=== PATIENT | female | born 1980 | race Caucasian/White ===

== ENCOUNTER 2016-12-17 15:27 | Inpatient (IN) | payer MEDICAID, MEDICARE ==
[2016-12-17] MEDS ORDERED: NS 0.9% 1000 ML* 2,000 ML IV ONE ×2 (15:41→17:50)
--- NOTE | 2016-12-17 16:01 | ED ---
GI/ HPI - HPI Summary HPI Summary: 36F presents with blood in stool. She has been having diarrhea since . She states she has started to notice gross blood in her stool today. She was seen by Dr Andujar and her h/h dropped by 4 points. She denies any dark tarry stool. She has been having low grade fevers. She denies any lightheadedness or weakness. She states she has been having LLQ pain. She has history of diarrhea that they believe is related to stress. She denies any excessive vaginal bleeding and she is not currently on her menses. She states her LMP was in October she believes. She does not know her family history because she was adopted. She admits to occasionally nausea and what she describes a choking feeling. She denies any flank pain, hematuria, frequency, or urgency. She does not know her family history due to being adopted. - History of Current Complaint Chief Complaint: EDGIBleed Time Seen by Provider: 12/17/16 15:39 Stated Complaint: DIARRHEA-SENT BY DR QUINTERO Pain Intensity: 6 - Allergy/Home Medications Allergies/Adverse Reactions: Allergies Allergy/AdvReac Type Severity Reaction Status Date / Time No Known Allergies Allergy Verified 12/17/16 16:37 Home Medications: Home Medications ALPRAZolam TAB* [Xanax TAB*] 0.25 mg PO DAILY PRN 12/17/16 [History Confirmed ] Bacitracin OINTMENT* 1 applic TOPICAL TID PRN 12/17/16 [History Confirmed ] Calcium Carbonate-Cholecalcife [Calcium 500+D 500-200 mg-Unit] 1 tab PO DAILY [History Confirmed 12/17/16] Carbamide Peroxide 6.5% OTIC* [DEBROX 6.5% Otic*] 5 drop BOTH EARS DAILY PRN 07/05 [History Confirmed 12/17/16] Cetirizine* [ZyrTEC 10 MG TAB*] 10 mg PO DAILY 12/17/16 [History Confirmed 12/17] Fluvoxamine Maleate [Fluvoxamine Maleate ER] 100 mg PO DAILY 12/17/16 [History Confirmed 12/17/16] Fluvoxamine Maleate [Fluvoxamine Maleate ER] 200 mg PO BEDTIME 12/17/16 [ History Confirmed 12/17/16] busPIRone TAB* [Buspar *] 45 mg PO BID 12/17/16 [History Confirmed 12/17/16] carBAMazepine ER TAB(*) [TEGretol Xr TAB(*)] 400 mg PO BEDTIME 12/17/16 [ History Confirmed 12/17/16] PMH/Surg Hx/FS Hx/Imm Hx Endocrine/Hematology History: Denies: Hx Diabetes Cardiovascular History: Denies: Hx Hypertension Neurological History: Reports: Hx Developmental Delay Infectious Disease History: Denies: Traveled Outside the [place] in Last 30 Days - Family History Known Family History: Positive: Unknown - adopted - Social History Alcohol Use: None Substance Use Type: Reports: None Smoking Status (MU): Never Smoked Tobacco Review of Systems Positive: Fever Negative: Chest Pain Negative: Shortness Of Breath Positive: Abdominal Pain, Diarrhea, Nausea Negative: flank pain All Other Systems Reviewed And Are Negative: Yes Physical Exam Triage Information Reviewed: Yes Vital Signs On Initial Exam: Initial Vitals Temp Pulse Resp BP Pulse Ox 101.2 F 136 16 112/76 99 12/17/16 15:30 12/17/16 15:30 12/17/16 15:30 12/17/16 15:30 12/17/16 15:30 Vital Signs Reviewed: Yes Appearance: Positive: Well-Appearing Skin: Positive: Warm, Dry Head/Face: Positive: Normal Head/Face Inspection Eyes: Positive: Normal, EOMI, ALEXIS, Conjunctiva Clear ENT: Positive: Normal ENT inspection, Pharynx normal, TMs normal Respiratory/Lung Sounds: Positive: Clear to Auscultation, Breath Sounds Present Cardiovascular: Positive: Normal, RRR Abdomen Description: Positive: Soft, Other: - tenderness in LLQ, no rebound, bright red blood on rectal exam with no external hemorrhoid seen Bowel Sounds: Positive: Present Diagnostics - Vital Signs Vital Signs Temp Pulse Resp BP Pulse Ox 12/17/16 15:30 101.2 F 136 16 112/76 99 - Laboratory Result Diagrams: 12/17/16 16:15 12/17/16 16:15 Lab Statement: Any lab studies that have been ordered have been reviewed, and results considered in the medical decision making process. - CT abd CT Interpretation: Positive (See Comments) - IMPRESSION: MUCOSAL THICKENING OF THE DISTAL COLON SUGGESTIVE OF COLITIS CT Interpretation Completed By: Radiologist GIGU Course/Dx - Course Course Of Treatment: 36F presents with blood in stool. She has been having diarrhea since . She states she has started to notice gross blood in her stool today. She was seen by Dr Andujar and her h/h dropped by 4 points. She denies any dark tarry stool. She has been having low grade fevers. She denies any lightheadness or weakness. She states she has been having LLQ pain. She has history of diarrhea that they believe is related to stress. She denies any excessive vaginal bleeding and she is not currently on her menses. On exam she is tender in LLQ. rectal exam shows bright red blood with no evidence of hemorrhoid seen. She has a fever on exam. labs wbc 11.7, h/ h decreased by 1 since this morning. discussed with dr Hinojosa who will admit. CT shows mucosal thickening suggestive of colitis - Diagnoses Differential Diagnoses - Female: Colitis, Diverticulitis, Gastroenteritis ( Bacterial), Ulcerative Colitis/Crohn's Disease Provider Diagnoses: Abdominal pain, Colitis, GI bleed Discharge - Discharge Plan Condition: Stable Disposition: ADMITTED TO [facility]
[2016-12-17 16:29] LABS: Hematocrit 29 % (35-47); Hemoglobin 9.3 g/dl (12.0-16.0); Mean Corpuscular HGB Conc 32 g/dl (31-36); Mean Corpuscular Hemoglobin 29 pg (27-31); Mean Corpuscular Volume 90 fL (80-97); Mean Platelet Volume 8 um3 (7.4-10.4); Red Blood Count 3.23 10^6/ul (4.0-5.4); Red Cell Distribution Width 15 % (10.5-15); White Blood Count 11.7 10^3/ul (3.5-10.8)
[2016-12-17 16:31] LABS: Add Diff/Slide Review? Slide Review Added; Comments Flag Yes
[2016-12-17 16:44] LABS: ALT 14 U/L (7-52); AST 12 U/L (13-39); Albumin 2.5 g/dL (3.2-5.2); Alkaline Phosphatase 54 U/L (34-104); Anion Gap 8 mmol/L (2-11); Blood Urea Nitrogen 9 mg/dL (6-24); CO2 Carbon Dioxide 26 mmol/L (22-32); Calcium 8.2 mg/dL (8.6-10.3); Chloride 99 mmol/L (101-111); EGFR African American 101.4 (>60); EGFR Non-African American 78.9 (>60); Globulin 5.1 g/dL (2-4); Glucose 118 mg/dL (70-100); Potassium 3.8 mmol/L (3.5-5.0); Sodium 133 mmol/L (133-145); Total Protein 7.6 g/dL (6.4-8.9)
[2016-12-17] MEDS ORDERED: Ciprofloxacin TAB* 500 MG PO ONE (16:57)
[2016-12-17] MEDS ORDERED: metroNIDAZOLE TAB* 250 MG PO ONE (16:57)
[2016-12-17] MEDS ORDERED: Iohexol 300* (CONTRAST) 10 ML SDV IV ONE (17:13)
[2016-12-17 17:43] LABS: Immature Granulocytes 16 % (0-9); Metamyelocytes % 1 % (0-2); Myelocytes % 1 % (0-1); Neutrophil % 70 % (38-83); RBC Morphology Normal (Normal)
[2016-12-17 17:44] LABS: Toxic Granulation 2+
[2016-12-17 17:46] LABS: C Reactive Protein 265.66 mg/L (< 5.00)
[2016-12-17] MEDS ORDERED: Ondansetron INJ* 2 MG/ML VIAL IV PRN (17:50)
[2016-12-17] MEDS ORDERED: Acetaminophen TAB* 325 MG PO PRN (17:50)
[2016-12-17] MEDS ORDERED: NS 0.9% 1000 ML* 1,000 ML IV SCH (18:00)
--- NOTE | 2016-12-17 18:22 | RAD ---
HISTORY: Cough, fever COMPARISONS: None VIEWS:1: Single frontal portable view of the chest at 6:19 PM FINDINGS: LINES AND TUBES: None. CARDIOMEDIASTINAL SILHOUETTE: The cardiomediastinal silhouette is normal for portable technique. PLEURA: The costophrenic angles are sharp. No pleural abnormalities are noted. LUNG PARENCHYMA: The lungs are clear. ABDOMEN: The upper abdomen is clear. There is no subphrenic gas. BONES AND SOFT TISSUES: No bone or soft tissue abnormalities are noted. IMPRESSION: NO ACTIVE CARDIOPULMONARY DISEASE.
[2016-12-17 18:24] LABS: Urine Bacteria 1+ (Absent); Urine Bilirubin Negative (Negative); Urine Glucose Negative (Negative); Urine Nitrite Negative (Negative)
--- NOTE | 2016-12-17 18:30 | RAD ---
CLINICAL HISTORY: Left lower quadrant pain, fever COMPARISON: None TECHNIQUE: Multiple contiguous axial CT scans were obtained of the abdomen and pelvis after the administration of intravenous contrast. Coronal and sagittal multiplanar reformations are submitted for review. Oral contrast was administered. Delayed images were obtained through the abdomen and pelvis. FINDINGS: LUNG BASES: The lung bases are clear. LIVER: The liver is normal in shape, size, contour, and attenuation. BILE DUCTS: There is no intrahepatic or extrahepatic biliary dilatation. GALLBLADDER: The gallbladder is not clearly visualized. PANCREAS: The pancreas is normal, without mass or ductal dilatation. SPLEEN: Normal in size and appearance. UPPER GI TRACT: Evaluation of the gastrointestinal tract is limited by incomplete gastric distention. The upper GI tract is unremarkable. SMALL BOWEL AND MESENTERY: The small bowel is normal in contour, course, and caliber. There is no obstruction or dilatation. COLON: There is mucosal thickening of the rectosigmoid colon. There is a tubular, vermiform, hollow viscus that is blind ending, and originates from the cecum, consistent with a normal appendix. There is no periappendiceal inflammatory change. This is best seen on axial images 46 through 53 ADRENALS: Normal bilaterally. KIDNEYS: The kidneys are normal in shape, size, contour, and axis. There is no hydronephrosis or nephrolithiasis. BLADDER: The bladder is collapsed and is not well evaluated PELVIC ORGANS: The uterus and adnexa are grossly normal for technique. AORTA: The aorta is normal. IVC: Unremarkable LYMPH NODES: There is no lymphadenopathy by size criteria. ABDOMINAL WALL: There is no evidence for abdominal wall hernia. BONES AND SOFT TISSUES: There is partial lumbarization of S1. Degenerative changes are noted at L5-S1 OTHER: None IMPRESSION: MUCOSAL THICKENING OF THE DISTAL COLON SUGGESTIVE OF COLITIS
[2016-12-17] MEDS: NS 0.9% 1000 ML* 1,000 ML IV SCH ×3 (20:56→23:14)
[2016-12-17 21:37] LABS: Urine Bacteria Absent (Absent); Urine Bilirubin Negative (Negative); Urine Glucose Negative (Negative); Urine Nitrite Negative (Negative)
[2016-12-17] MEDS: busPIRone TAB* 30 MG PO SCH (22:03)
[2016-12-17] MEDS: carBAMazepine ER TAB(*) 200 MG PO SCH (22:04)
[2016-12-17] MEDS: FLUVOXAMINE 100 MG PO SCH (23:18)
[2016-12-17 23:29] LABS: Hematocrit 23 % (35-47); Hemoglobin 7.5 g/dl (12.0-16.0)
[2016-12-18] MEDS ORDERED: NS 0.9% 1000 ML* 1,000 ML IV ONE
[2016-12-18] MEDS: metroNIDAZOLE IV 500 MG/100ML* 500 MG/100 ML BAG IVPB SCH ×3 (03:02→22:51)
[2016-12-18] MEDS: Ciprofloxacin 400MG IVPREMIX(* 400 MG/200 ML BAG IVPB SCH ×2 (04:57→17:49)
--- NOTE | 2016-12-18 06:43 | HP ---
CC: Dr. Saldana; Dr. Palma* HISTORY AND PHYSICAL: DATE OF ADMISSION: 12/17/16 PRIMARY CARE PROVIDER: Dr. Saldana ATTENDING PHYSICIAN WHILE IN THE HOSPITAL: Con Camarena MD* (report dictated by Bryan Diane NP). CHIEF COMPLAINT: 1. Diarrhea. 2. Low H and H. 3. Bright red blood per rectum. HISTORY OF PRESENT ILLNESS: Ms. Munguia is a 36-year-old female patient who presented to our hospital today complaining of having diarrhea since the , off and on throughout the month of November. However, the last day she believes she has been having some bloody diarrhea. It is hard to say whether or not it has been her menses or bloody diarrhea. The patient does have intellectual developmental delay and she is able to care for herself. She does not really know how many times she has been having bloody diarrhea, but they definitely noticed it today, the staff did and they were concerned. She saw Dr. Saldana, there were labs obtained today and it was noted that her H and H since October had dropped quite significantly and the patient was referred to the ER for further care and evaluation. The patient denies having any chest pain currently. She denies having any shortness of breath. She galileo admit to having some lower abdominal cramping and abdominal discomfort. She says that she is not having any chest pain and does not feel lightheaded or like she is going to faint or pass out. However, was concerned in the ER because it was noted when she came in she was febrile, she had a white count, she appeared to have an elevated CRP, and her lactic acid was up. There was concern for sepsis and the lower GI bleed, and the hospitalist's service was asked to evaluate for admission. PAST MEDICAL HISTORY: Significant for: 1. OCD. 2. Seizures. 3. Intellectual developmental delay. PAST SURGICAL HISTORY: She has had a colonoscopy about 2 and half years ago with Dr. Gonzales, refer to that report for details, but ultimately found polyps. FAMILY HISTORY: Unknown as she is adopted. SOCIAL HISTORY: She does not smoke, does not drink. She resides at the [facility]. ALLERGIES TO MEDICATIONS: No known drug allergies. HOME MEDICATIONS: According to [facility]'s list include: 1. Imodium 2 mg every 6 hours as needed. 2. Hydrocortisone 0.2% topically daily as needed. 3. Xanax 0.25 mg p.o. daily as needed prior to [facility] appointments. 4. Debrox 5 drops both ears daily as needed. 5. Tylenol 650 mg every 4 hours as needed. 6. Robitussin 5 mg p.o. every 4 hours. 7. Bacitracin 1 application topically t.i.d. as needed. 8. Fluvoxamine 200 mg at bedtime and she takes 100 mg in the morning. 9. Zyrtec 10 mg daily. 10. Carbamazepine 400 mg p.o. at bedtime. 11. BuSpar 45 mg p.o. b.i.d. 12. Calcium carbonate with vitamin D 1 tablet p.o. daily. 13. Vitamin C 500 mg p.o. daily. 14. Folic acid 1 tablet 1 mg p.o. daily. REVIEW OF SYSTEMS: There is a documented fever here. She denied having any double vision. There was weight change of about 20 pounds since beginning of November. No ear discharge. There was no rhinorrhea. No sore throat. No thyroid enlargement. She does admit to having cough that has been productive of white phlegm at times. There is no chest pain or shortness of breath. There was abdominal discomfort, again she describes as a lower quadrant, sharp pain. She denies having any nausea, vomiting. No dysuria. No frequency. There was no seizure. No loss of consciousness. No pruritus and no skin ulceration. Review of 14 systems completed, all others negative. PHYSICAL EXAMINATION GENERAL: At this time, Ms. Munguia is a 36-year-old female patient. She is sitting in the ER stretcher. She does not appear to be in acute distress. VITAL SIGNS: Blood pressure 123/78, pulse 110, respirations 20, O2 sat 99%, temperature of 100.7. HEENT: Head is atraumatic and normocephalic. Eyes: EOMs are intact. Sclerae are anicteric. Not pale. Throat: Oral mucosa appeared to be dry. No oropharyngeal erythema. NECK: Supple. HEART: Sounds S1 and S2. Regular rate and rhythm. She is tachycardic. LUNGS: Clear to auscultation bilaterally. No wheezes, rales, or rhonchi. ABDOMEN: Soft and flat. Bowel sounds are present in all 4 quadrants. Tenderness in the left lower quadrant. EXTREMITIES: Pulses are 2+ throughout. She is able to move all 4 extremities, 5/5 strength. NEUROLOGIC: The patient is awake, alert, she is oriented x3. No gross focal deficits. SKIN: Intact. LABORATORY DATA/DIAGNOSTIC STUDIES: Today, revealed WBC of 11.7, RBC 2.23, hemoglobin 9.3, hematocrit 29, platelet count of 511. INR 1.11. PTT at 27.0. Sodium 133, potassium 3.8, chloride 99, bicarbonate 26, BUN 9, creatinine 0.83. Glucose of 118. Lactic acid 2.0. Calcium 8.2, total bilirubin 0.2, AST 12, ALT 14, alkaline phos 54. Her CRP was 255, albumin of 2.5. Chest x-ray is pending in addition to the CT of the abdomen and pelvis pending. Old medical records reviewed. ASSESSMENT AND PLAN: Ms. Munguia is a 36-year-old female patient coming in to the ER today with complaints of lower abdominal cramping and bright red blood per rectum. She will be admitted under inpatient status for: 1. Sepsis. Again, this is probably from a GI source, concerned that may be she has diverticulitis. She does not appear to have a surgical abdomen at this time. She is soft, little bit tender in the lower abdomen, there is no guarding or rebound tenderness. My plan is to get a CT of the abdomen and pelvis, chest x-ray, blood cultures, urine culture. I did touch base with GI for the lower rectal bleeding. My plan will be to follow her H and Hs closely, hydrate her aggressively, I am going to give her 2 L of fluids wide open and Cipro and Flagyl for now. We will send off stool studies if she gives us the sample. She has not had any blood bowel movements here in the ED and we will continue to follow her closely. Depending on CT finding, we will delineate our further course of care. 2. OCD, continue with supportive care. 3. Intellectual developmental delay. Continue supportive care. 4. History of seizures, I will continue her meds as prescribed. I will order seizure precautions. 5. DVT prophylaxis, she will be placed on SCDs. 6. Code status. Full code. 7. Fluids, nutrition. I am going to put her on a clear liquid diet for now after the CAT scan. TIME SPENT: Time spent on the admission was approximately 70 minutes, greater than half the time was spent [id number] with the patient obtaining my history and physical, other half of the time was spent going over the plan of care with the patient and implementing the plan of care. I did discuss the plan of care with my attending, Dr. Camarena, he is in agreement. BRYAN DIANE, ALANA [id number]/CPS #: [id number] KISHORE
[2016-12-18 08:16] LABS: Hematocrit 29 % (35-47); Hemoglobin 9.5 g/dl (12.0-16.0)
[2016-12-18 08:32] LABS: BUN/Creatinine Ratio 9.8 (8-20); Calcium 6.7 mg/dL (8.6-10.3); EGFR African American 175.5 (>60); EGFR Non-African American 136.5 (>60); Potassium 3.3 mmol/L (3.5-5.0)
[2016-12-18] MEDS: FLUVOXAMINE 100 MG PO SCH ×2 (10:00→22:52)
[2016-12-18] MEDS: Folic Acid TAB* 1 MG PO SCH (10:02)
[2016-12-18] MEDS: Cetirizine* 10 MG TAB PO SCH (10:03)
[2016-12-18] MEDS: busPIRone TAB* 30 MG PO SCH ×2 (10:03→22:53)
[2016-12-18] MEDS ORDERED: Meperidine SYRINGE* 50 MG/ML ONE (13:36)
[2016-12-18] MEDS ORDERED: Midazolam* 1 MG/ML 10 ML VIAL (10 MG) ONE (13:36)
[2016-12-18] MEDS ORDERED: Omeprazole CAP* 20 MG PO ONE (14:57)
[2016-12-18] MEDS ORDERED: methylPREDNISolone SOD SUCC* 500 MG VIAL IVPB SCH (15:00)
[2016-12-18 15:38] LABS: Comments Flag Yes; Hematocrit 34 % (35-47); Hemoglobin 10.8 g/dl (12.0-16.0)
[2016-12-18] MEDS ORDERED: methylPREDNISolone SOD 40 MG* 1 ML VIAL ONE (15:55)
[2016-12-18] MEDS: NS 0.9% IVPB SCH ×2 (16:10→22:55)
[2016-12-18] MEDS: METHYLPREDNISOLONE SOD IVPB SCH ×2 (16:10→22:55)
--- NOTE | 2016-12-18 16:13 | PN ---
Subjective Date of Service: 12/18/16 Interval History: Pt is feeling ok currently. She states she does not have any abdominal pain at this time. She feels loopy after the endoscopy procedures. Objective Active Medications: Acetaminophen (Tylenol Tab*) 650 mg PO Q4H PRN PRN Reason: FEVER/PAIN Last Admin: 12/18/16 00:12 Dose: 650 mg Buspirone HCl (Buspar Tab*) 45 mg PO BID [facility] Last Admin: 12/18/16 10:03 Dose: 45 mg Carbamazepine (Tegretol Xr Tab(*)) 400 mg PO BEDTIME [facility] Last Admin: 12/17/16 22:04 Dose: 400 mg Cetirizine HCl (Zyrtec*) 10 mg PO DAILY [facility] PRN Reason: Protocol Last Admin: 12/18/16 10:03 Dose: 10 mg Fluvoxamine Maleate (Luvox (Nf)) 100 mg PO DAILY [facility] Last Admin: 12/18/16 10:00 Dose: 100 mg Fluvoxamine Maleate (Luvox (Nf)) 200 mg PO BEDTIME [facility] Last Admin: 12/17/16 23:18 Dose: 200 mg Folic Acid (Folvite Tab*) 1 mg PO DAILY [facility] Last Admin: 12/18/16 10:02 Dose: 1 mg Ciprofloxacin/Dextrose (Cipro 400 Mg Ivpremix(*)) 400 mg in 200 mls @ 200 mls/ hr IVPB 0500,1700 [facility] Last Admin: 12/18/16 04:57 Dose: 200 mls/hr Metronidazole/Sodium Chloride (Flagyl 500 Mg Ivpb*) 500 mg in 100 mls @ 100 mls /hr IVPB 0200,1000,1800 [facility] Last Admin: 12/18/16 09:58 Dose: 100 mls/hr Methylprednisolone Sodium Succinate 30 mg/ Sodium Chloride 50.75 mls @ 101.5 mls/hr IVPB TID [facility] Omeprazole (Prilosec Cap*) 20 mg PO DAILY@0600 [facility] Ondansetron HCl (Zofran Inj*) 4 mg IV Q6H PRN PRN Reason: NAUSEA Vital Signs 12/17/16 12/17/16 12/17/16 19:35 20:00 23:52 Temperature 99.6 F 100.6 F Pulse Rate 113 118 Respiratory 19 18 16 Rate Blood Pressure 112/70 115/61 (mmHg) O2 Sat by Pulse 98 99 Oximetry 12/17/16 12/18/16 12/18/16 23:55 01:38 02:47 Temperature 99.1 F 98.2 F Pulse Rate 96 Respiratory 18 Rate Blood Pressure 98/59 (mmHg) O2 Sat by Pulse 99 98 Oximetry 12/18/16 12/18/16 12/18/16 03:11 08:00 08:05 Temperature 97.4 F 99.1 F Pulse Rate 94 88 Respiratory 18 18 16 Rate Blood Pressure 103/58 91/46 (mmHg) O2 Sat by Pulse 99 100 Oximetry 12/18/16 12/18/16 12/18/16 08:30 11:49 15:39 Temperature 99.5 F 97.8 F Pulse Rate 94 87 Respiratory 16 18 Rate Blood Pressure 110/65 124/80 (mmHg) O2 Sat by Pulse 99 99 100 Oximetry Oxygen Devices in Use Now: None Appearance: Young female sitting up in bed, NAD Eyes: No Scleral Icterus Ears/Nose/Mouth/Throat: Mucous Membranes Moist Respiratory: Symmetrical Chest Expansion and Respiratory Effort, Clear to Auscultation Cardiovascular: NL Sounds; No Murmurs; No JVD, No Edema Abdominal: NL Sounds; No Tenderness; No Distention Extremities: No Clubbing, Cyanosis Skin: No Rash or Ulcers, No Nodules or Sclerosis Neurological: Alert and Oriented x 3 Result Diagrams: 12/18/16 15:33 12/18/16 07:58 Microbiology and Other Data: Microbiology 12/17/16 18:00 Urine Culture - Final Urine 12/18/16 00:10 Stool Gross Appearance - Final Stool C. difficile DNA Amplification - Final 027 Presumptive NEGATIVE Toxigenic C.diff NEGATIVE Rotavirus Antigen - Final Negative Rotavirus 12/18/16 01:00 Nasal Screen MRSA (PCR)([facility]) - Final Nasal Mrsa Negative 12/18/16 00:10 Stool Gross Appearance - Final Stool Stool Lactoferrin - Final 12/18/16 00:10 Stool Occult Blood ([facility]) - Final Stool Assess/Plan/Problems-Billing Ms Munguia is a 36 yo F who has a h/o OCD, seizure disorder and intellectual developmental delay who presented to the ER with a finding of a drop in her H/H by her PCP and bloody diarrhea. - Patient Problems (1) Ulcerative colitis Current Visit: Yes Status: Acute Code(s): K51.90 - ULCERATIVE COLITIS, UNSPECIFIED, WITHOUT COMPLICATIONS SNOMED Code(s): 89954625 Comment: The patient underwent colonscopy earlier today that showed moderately severe UC. Will start solumedrol 30mg IV TID per Dr. Palma's recommendations. SHe will likely need to be in the hospital for another couple days. The patient was found to be anemic and her H/H trended down even further last night. She recieved 2 units PRBC with good response. Follow up CBC tomorrow. (2) Gastritis Current Visit: Yes Status: Acute Code(s): K29.70 - GASTRITIS, UNSPECIFIED, WITHOUT BLEEDING SNOMED Code(s): 8974982 Comment: Start omeprazole. H pylori testing pending. (3) Seizure disorder Current Visit: Yes Status: Acute Code(s): G40.909 - EPILEPSY, UNSP, NOT INTRACTABLE, WITHOUT STATUS EPILEPTICUS SNOMED Code(s): 111508863 Comment: Continue tegretol. (4) OCD (obsessive compulsive disorder) Current Visit: Yes Status: Acute Code(s): F42.9 - OBSESSIVE-COMPULSIVE DISORDER, UNSPECIFIED SNOMED Code(s): 978706335 Comment: Continue fluvoxamine. (5) DVT prophylaxis Current Visit: Yes Status: Acute Code(s): FQK4626 - SNOMED Code(s): 682524275 Comment: Ambulation (6) Full code status Current Visit: Yes Status: Acute Code(s): Z78.9 - OTHER SPECIFIED HEALTH STATUS SNOMED Code(s): 617443384
--- NOTE | 2016-12-18 22:37 | CONS ---
GASTROENTEROLOGY CONSULT DATE OF CONSULT: 12/18/16 CONSULTING PHYSICIANS: Ramin Saldana, Con Camarena* REASON FOR CONSULTATION: Diarrhea with some blood and hemoglobin falling from 14.2 on 10/18/16 to 9.3. It then fell to 7.5 and 2 units were transfused. HISTORY: This 36-year-old resident of the [facility], adopted from [place] at age 8 months, comes in with complaint of diarrhea with blood having been seen. Her father assisted in the history She is a poor historian, sometimes giving detail and then contradicting herself and saying she does not remember. She is independent in toileting and thus, information is somewhat sketchy. She does confirm that she has had loose stools for 6 or more weeks. She was worked up for loose stools that were heme positive with intermittent complaints of bleeding. A couple of years ago, colonoscopy showed a mild irritation and biopsy showed the same. A polyp removed at 30 cm was inflammatory and had many eosinophils. The diagnosis was not clear but she was clinically okay with minimal complaints and in f/u with Dr Saldana apparently GI symptoms were not prominent. Just 2 months ago, 10/18/16, a blood sample was sent in, monitoring her psychiatric meds and remarkably, her CBC then was normal with hemoglobin 14.2, MCV 90, and platelet counts 211,000. On the same date, her LFTs were normal, the albumin 3.9. There has been no acute illness in the intervening time. PAST MEDICAL HISTORY: 1. Obsessive compulsive disorder. 2. Mental retardation and developmental issues. SOCIAL HISTORY: She was adopted by her parents living here in [facility] and it took 8 months to complete the paperwork. She was brought here. She has been a resident of the [facility] for a number of years. REVIEW OF SYSTEMS: No history of NC, cardiac arrhythmia, valvular heart disease , rheumatic fever, hemoptysis, pulmonary complaints. TB testing status is unknown. Carbamazepine level on 10/18/16 was normal at 8.7 (4 to 12 normal range ). Chest x- ray in the ER, 12/17/16, shows no active disease and apparently no sign of TB. There is no history of renal disease, hepatitis, skin rash, or fracture. She has had no surgical procedures. PHYSICAL EXAM: She is a mildly overweight woman, quite shy and avoiding eye contact. Her father is with her. HEENT exam is unremarkable. There is no icterus. She has no adenopathy. Her lungs are clear. Heart sounds are regular. The abdomen is mildly obese. She indicates she has been having some lower abdominal pain and points to the suprapubic area. Bowel sounds are positive. Extremities show no edema. Neurologic: Nonfocal with alertness normal. Cranial nerves normal. Speech content consistent with past history. She moves all extremities equally. LABORATORY DATA/IMAGING: CBC shows white count 10.4, and on repeat 11.7. CRP 266 compared to 10 two years ago and 70 two years and two weeks ago. At that time, she was being evaluated for diarrhea. Prior reports - colonoscopy, 03/09/15, did show a normal terminal ileum. Rectal mucosa was apparently unremarkable. Random biopsies were taken and these showed superficial colitis and focal cryptitis with marked architectural disorder compatible with repair and interstitial eosinophilia with no granulomas and one possible crypt abscess. A polyp removed at 30 cm was said to be an inflammatory polyp with marked eosinophilia. CT scan - swelling of the left colon. IMPRESSION: This 36-year-old woman presents with a marked iron-deficiency anemia, remarkably progressed over a short time since the normal CBC exactly 2 months ago is well documented. With a history of prior heme-positive diarrhea, inflammatory bowel disease is quite likely. Flexible sigmoidoscopy is planned and with the severity of this, corticosteroid therapy is likely indicated. [id number]/[facility] #: [id number] [facility]
[2016-12-18] MEDS: carBAMazepine ER TAB(*) 200 MG PO SCH (22:53)
[2016-12-19] MEDS: metroNIDAZOLE IV 500 MG/100ML* 500 MG/100 ML BAG IVPB SCH ×2 (03:18→09:52)
[2016-12-19] MEDS: Ciprofloxacin 400MG IVPREMIX(* 400 MG/200 ML BAG IVPB SCH (05:28)
[2016-12-19] MEDS: Omeprazole CAP* 20 MG PO SCH (05:30)
[2016-12-19 05:59] LABS: Hematocrit 32 % (35-47); Hemoglobin 10.6 g/dl (12.0-16.0); Mean Corpuscular HGB Conc 34 g/dl (31-36); Mean Corpuscular Hemoglobin 29 pg (27-31); Mean Corpuscular Volume 87 fL (80-97); Mean Platelet Volume 8 um3 (7.4-10.4); Red Blood Count 3.62 10^6/ul (4.0-5.4); Red Cell Distribution Width 15 % (10.5-15); White Blood Count 6.7 10^3/ul (3.5-10.8)
[2016-12-19 06:16] LABS: BUN/Creatinine Ratio 8.2 (8-20); Calcium 7.3 mg/dL (8.6-10.3); EGFR African American 183.8 (>60); EGFR Non-African American 142.9 (>60)
[2016-12-19 06:52] LABS: Potassium 3.7 mmol/L (3.5-5.0)
[2016-12-19] MEDS ORDERED: methylPREDNISolone SOD 40 MG* 1 ML VIAL ONE (08:56)
[2016-12-19] MEDS: NS 0.9% IVPB SCH (09:02)
[2016-12-19] MEDS: METHYLPREDNISOLONE SOD IVPB SCH (09:02)
[2016-12-19] MEDS: Folic Acid TAB* 1 MG PO SCH (09:03)
[2016-12-19] MEDS: busPIRone TAB* 30 MG PO SCH ×2 (09:03→20:37)
[2016-12-19] MEDS: Cetirizine* 10 MG TAB PO SCH (09:03)
[2016-12-19] MEDS: FLUVOXAMINE 100 MG PO SCH ×2 (09:07→20:36)
--- NOTE | 2016-12-19 10:37 | PN ---
Subjective Date of Service: 12/19/16 Interval History: No c/o, denies pain. Objective Active Medications: Acetaminophen (Tylenol Tab*) 650 mg PO Q4H PRN PRN Reason: FEVER/PAIN Last Admin: 12/18/16 00:12 Dose: 650 mg Buspirone HCl (Buspar Tab*) 45 mg PO BID [facility] Last Admin: 12/19/16 09:03 Dose: 45 mg Carbamazepine (Tegretol Xr Tab(*)) 400 mg PO BEDTIME [facility] Last Admin: 12/18/16 22:53 Dose: 400 mg Cetirizine HCl (Zyrtec*) 10 mg PO DAILY [facility] PRN Reason: Protocol Last Admin: 12/19/16 09:03 Dose: 10 mg Fluvoxamine Maleate (Luvox (Nf)) 100 mg PO DAILY [facility] Last Admin: 12/19/16 09:07 Dose: 100 mg Fluvoxamine Maleate (Luvox (Nf)) 200 mg PO BEDTIME [facility] Last Admin: 12/18/16 22:52 Dose: 200 mg Folic Acid (Folvite Tab*) 1 mg PO DAILY [facility] Last Admin: 12/19/16 09:03 Dose: 1 mg Omeprazole (Prilosec Cap*) 20 mg PO DAILY@0600 [facility] Last Admin: 12/19/16 05:30 Dose: 20 mg Ondansetron HCl (Zofran Inj*) 4 mg IV Q6H PRN PRN Reason: NAUSEA Prednisone (Deltasone Tab*) 30 mg PO TID [facility] Vital Signs 12/18/16 12/18/16 12/18/16 11:49 15:39 19:50 Temperature 99.5 F 97.8 F 99.0 F Pulse Rate 94 87 106 Respiratory 16 18 16 Rate Blood Pressure 110/65 124/80 102/60 (mmHg) O2 Sat by Pulse 99 100 97 Oximetry 12/18/16 12/19/16 12/19/16 20:00 00:46 03:19 Temperature 98.5 F 97.5 F Pulse Rate 90 96 Respiratory 15 20 20 Rate Blood Pressure 125/76 117/72 (mmHg) O2 Sat by Pulse 98 98 Oximetry Oxygen Devices in Use Now: None Appearance: Alert, lying on L side in bed. Neutral affect. Looks comfortable. Eyes: No Scleral Icterus Ears/Nose/Mouth/Throat: Clear Oropharnyx, Mucous Membranes Moist Neck: NL Appearance and Movements; NL JVP, No Thyroid Enlargement, Masses Respiratory: Symmetrical Chest Expansion and Respiratory Effort, Clear to Auscultation, Clear to Percussion Cardiovascular: NL Sounds; No Murmurs; No JVD, RRR, No Edema, - Abdominal: No Hepatosplenomegaly, - - Minimal abd tenderness. Nl BS. Soft. Extremities: No Edema, No Clubbing, Cyanosis, - Skin: No Rash or Ulcers, No Nodules or Sclerosis, - Neurological: Alert and Oriented x 3, NL Sensation Result Diagrams: 12/19/16 05:33 12/19/16 05:33 Microbiology and Other Data: Microbiology 12/17/16 18:00 Urine Culture - Final Urine 12/18/16 00:10 Stool Gross Appearance - Final Stool C. difficile DNA Amplification - Final 027 Presumptive NEGATIVE Toxigenic C.diff NEGATIVE Rotavirus Antigen - Final Negative Rotavirus 12/18/16 01:00 Nasal Screen MRSA (PCR)([facility]) - Final Nasal Mrsa Negative 12/18/16 00:10 Stool Gross Appearance - Final Stool Stool Lactoferrin - Final 12/18/16 00:10 Stool Occult Blood ([facility]) - Final Stool Assess/Plan/Problems-Billing Ms Munguia is a 36 yo F who has a h/o OCD, seizure disorder and intellectual developmental delay who presented to the ER with a finding of a drop in her H/H by her PCP and bloody diarrhea. - Patient Problems (1) Ulcerative colitis Current Visit: Yes Status: Acute Code(s): K51.90 - ULCERATIVE COLITIS, UNSPECIFIED, WITHOUT COMPLICATIONS SNOMED Code(s): 34068333 Comment: H&H stable. Clinically doing well. Change to oral prednisone, consider discharge 12/20. CRP repeat on 12/20. (2) Seizure disorder Current Visit: Yes Status: Acute Code(s): G40.909 - EPILEPSY, UNSP, NOT INTRACTABLE, WITHOUT STATUS EPILEPTICUS SNOMED Code(s): 769342626 Comment: Continue tegretol. (3) OCD (obsessive compulsive disorder) Current Visit: Yes Status: Acute Code(s): F42.9 - OBSESSIVE-COMPULSIVE DISORDER, UNSPECIFIED SNOMED Code(s): 773664112 Comment: Continue fluvoxamine. (4) Gastritis Current Visit: Yes Status: Acute Code(s): K29.70 - GASTRITIS, UNSPECIFIED, WITHOUT BLEEDING SNOMED Code(s): 3674813 Comment: Seen on EGD. Continue omeprazole. H pylori testing pending.
--- NOTE | 2016-12-19 11:09 | PRO ---
DATE: 12/18/16 - ROOM #[id number] REFERRING PHYSICIAN: Ramin Saldana* PROCEDURE: Upper gastrointestinal endoscopy and CLOtest; flexible sigmoidoscopy to 50 cm with biopsy x4 at 20 cm. INDICATION: This 36-year-old woman came to the emergency room with 6 weeks of diarrhea that had been progressive and she was found to have a hemoglobin of 9.3 that went down to 7.5. She was transfused 2 units. In the emergency room, she was complaining of abdominal pain, cramps, and was passing bloody stool debris few hours. No prep was given. ENDOSCOPIST: Dr. Palma. MEDICATIONS: Midazolam 10, meperidine 50. FINDINGS: Given the need for transfusion on the dramatic fall on hemoglobin ( she had been normal on 10/18/16 when her psychiatrist sent her in for drug monitoring, blood studies). Upper endoscopy was elected. EGD: Larynx - not seen. Esophogus - easily entered. The mucosa is normal. The upper, mid and lower esophagus with EG junction at 34, it is mildly loose. There is some minimal fundic prolapse as she is a very active gagger, but no fixed hiatal hernia and no erosions or chronic changes. Stomach - some minimal punctate red spots with a wispy bleeding pattern. Changes were very mild. Otherwise, the mucosa in the cardia, fundus, body and antrum and rugal pattern was normal. There were no chronic changes or deformity. Pylorus appears normal. Duodenum - the bulb and second to fourth portions appeared normal. Flexible sigmoidoscopy - the rectum has a granular erythema with edema and no vascular pattern can be seen. Beginning at about 16 to 18 cm, erosions begin and then rapidly become ulcers that are in a linear pattern in parallel rows progressively higher up in the colon. The scope was passed to about 50 cm and the exam was tolerated very well. There was no active bleeding, but a tremendous amount of liquid opaque stool. The appearance was consistent with a very severe ulcerative colitis. Coming back at about 18 to 20 cm, 4 biopsies were taken and submitted. IMPRESSION: 1. Minimal gastritis. 2. Minimally loose esophagogastric junction. 3. Severe colitis - visually consistent with ulcerative colitis and this would fit with her diarrheal illness 2 years ago where lactoferrin was positive. Methylprednisolone 30 mg q.8 hours should be given. A QuantiFERON gold test would be useful to rule out TB as she lives in a group setting and was in [facility] until age 8 months. Addendum: Bx c/w UC with crypt abcesses [id number]/[facility] #: [id number] MTDD
[2016-12-19] MEDS: predniSONE TAB* 10 MG PO SCH ×2 (13:22→20:38)
[2016-12-19] MEDS: carBAMazepine ER TAB(*) 200 MG PO SCH (20:35)
[2016-12-20] MEDS: Omeprazole CAP* 20 MG PO SCH (06:23)
[2016-12-20] MEDS: metroNIDAZOLE IV 500 MG/100ML* 500 MG/100 ML BAG IVPB SCH ×2 (07:32→07:33)
[2016-12-20] MEDS: Ciprofloxacin 400MG IVPREMIX(* 400 MG/200 ML BAG IVPB SCH (07:33)
[2016-12-20] MEDS: predniSONE TAB* 10 MG PO SCH ×2 (07:37→13:27)
[2016-12-20] MEDS: Folic Acid TAB* 1 MG PO SCH (07:37)
[2016-12-20] MEDS: Cetirizine* 10 MG TAB PO SCH (07:38)
[2016-12-20] MEDS: FLUVOXAMINE 100 MG PO SCH (07:39)
[2016-12-20] MEDS: busPIRone TAB* 30 MG PO SCH (07:48)
[2016-12-20 08:10] VITALS: BP 94/60
--- NOTE | 2016-12-20 11:29 | PN ---
Objective Active Medications: Acetaminophen (Tylenol Tab*) 650 mg PO Q4H PRN PRN Reason: FEVER/PAIN Last Admin: 12/18/16 00:12 Dose: 650 mg Buspirone HCl (Buspar Tab*) 45 mg PO BID [facility] Last Admin: 12/20/16 07:48 Dose: 45 mg Carbamazepine (Tegretol Xr Tab(*)) 400 mg PO BEDTIME [facility] Last Admin: 12/19/16 20:35 Dose: 400 mg Cetirizine HCl (Zyrtec*) 10 mg PO DAILY [facility] PRN Reason: Protocol Last Admin: 12/20/16 07:38 Dose: 10 mg Fluvoxamine Maleate (Luvox (Nf)) 100 mg PO DAILY [facility] Last Admin: 12/20/16 07:39 Dose: 100 mg Fluvoxamine Maleate (Luvox (Nf)) 200 mg PO BEDTIME [facility] Last Admin: 12/19/16 20:36 Dose: 200 mg Folic Acid (Folvite Tab*) 1 mg PO DAILY [facility] Last Admin: 12/20/16 07:37 Dose: 1 mg Omeprazole (Prilosec Cap*) 20 mg PO DAILY@0600 [facility] Last Admin: 12/20/16 06:23 Dose: 20 mg Ondansetron HCl (Zofran Inj*) 4 mg IV Q6H PRN PRN Reason: NAUSEA Prednisone (Deltasone Tab*) 30 mg PO TID [facility] Last Admin: 12/20/16 07:37 Dose: 30 mg Vital Signs 12/19/16 12/19/16 12/19/16 15:24 19:37 20:00 Temperature 98.5 F 98.6 F Pulse Rate 76 84 Respiratory 20 20 20 Rate Blood Pressure 99/61 108/76 (mmHg) O2 Sat by Pulse 98 98 Oximetry 12/19/16 12/20/16 12/20/16 23:06 01:26 03:10 Temperature 98.0 F 97.8 F Pulse Rate 89 96 Respiratory 20 20 Rate Blood Pressure 94/50 111/68 (mmHg) O2 Sat by Pulse 96 97 97 Oximetry 12/20/16 12/20/16 12/20/16 07:19 07:45 08:09 Temperature 98.6 F Pulse Rate 72 Respiratory 16 16 Rate Blood Pressure 89/61 94/60 (mmHg) O2 Sat by Pulse 97 Oximetry Oxygen Devices in Use Now: None Result Diagrams: 12/19/16 05:33 12/19/16 05:33 Microbiology and Other Data: Microbiology 12/17/16 18:00 Urine Culture - Final Urine 12/18/16 00:10 Stool Gross Appearance - Final Stool C. difficile DNA Amplification - Final 027 Presumptive NEGATIVE Toxigenic C.diff NEGATIVE Rotavirus Antigen - Final Negative Rotavirus 12/18/16 01:00 Nasal Screen MRSA (PCR)([facility]) - Final Nasal Mrsa Negative 12/18/16 00:10 Stool Gross Appearance - Final Stool Stool Lactoferrin - Final 12/18/16 00:10 Stool Occult Blood ([facility]) - Final Stool Assess/Plan/Problems-Billing Ms Munguia is a 36 yo F who has a h/o OCD, seizure disorder and intellectual developmental delay who presented to the ER with a finding of a drop in her H/H by her PCP and bloody diarrhea. - Patient Problems (1) Ulcerative colitis Current Visit: Yes Status: Acute Code(s): K51.90 - ULCERATIVE COLITIS, UNSPECIFIED, WITHOUT COMPLICATIONS SNOMED Code(s): 49486999 Comment: H&H stable. Clinically doing well. Change to oral prednisone, consider discharge 12/20. CRP repeat on 12/20. (2) Seizure disorder Current Visit: Yes Status: Acute Code(s): G40.909 - EPILEPSY, UNSP, NOT INTRACTABLE, WITHOUT STATUS EPILEPTICUS SNOMED Code(s): 859628470 Comment: Continue tegretol. (3) OCD (obsessive compulsive disorder) Current Visit: Yes Status: Acute Code(s): F42.9 - OBSESSIVE-COMPULSIVE DISORDER, UNSPECIFIED SNOMED Code(s): 039328759 Comment: Continue fluvoxamine. (4) Gastritis with bleeding Current Visit: Yes Status: Acute Code(s): K29.71 - GASTRITIS, UNSPECIFIED, WITH BLEEDING SNOMED Code(s): 3013211 (5) SIRS (systemic inflammatory response syndrome) Current Visit: Yes Status: Acute Code(s): R65.10 - SIRS OF NON-INFECTIOUS ORIGIN W/O ACUTE ORGAN DYSFUNCTION SNOMED Code(s): 796515552 Comment: Patient met SIRS criteria on admission. Status and Disposition: Discharge now. Fup Louie Ruiz.
--- NOTE | 2016-12-20 11:36 | PN ---
Progress Note - Progress Note Date of Service: 12/20/16 Note: Time spent on discharge 45 minutes.
--- NOTE | 2016-12-20 17:18 | DS ---
CC: Dr. Saldana; Dr. Palma DISCHARGE SUMMARY: DATE OF ADMISSION: DATE OF DISCHARGE: 12/20/16 HOSPITAL COURSE: This 36-year-old woman presented with chief complaint of diarrhea, bright red bloo d per rectum, and anemia. She had had diarrhea off and on for about entire month. The last day the diarrhea became bloody. She had some labs done as an outpatient noting her hemoglobin and hematocr it had dropped. The patient was referred to the emergency room. On admission, she did meet SIRS cr iteria. She was started on ciprofloxacin and metronidazole. CT scan was compatible with left-sided colitis. Dr. Palma saw her in consultation. He did endoscopy and colonoscopy both on 12/18/16 the day afte r admission. The stomach showed some minimal punctate red spots with a wispy bleeding pattern, wheatley ges were described as very mild, but consistent with gastritis. On flexible sigmoidoscopy, there wa s granular erythema in the rectum. Beginning at 16 to 18 cm, erosions appeared that rapidly became ulcers in a linear pattern in parallel rows higher up in the colon. The sigmoidoscope was passed to 50 cm. There was no active bleeding and a lot of liquid opaque stool was seen. The appearance cli nically was of severe ulcerative colitis. Four biopsies were taken and submitted. The biopsy repor ts are pending at this time. The patient was given intravenous methylprednisolone. She had a rapid and virtually complete recove ry. Abdominal pain and bleeding subsided. Her hematocrit was 30 on admission and 32 on the day of discharge. She got 2 units of packed cells on 12/18/16. I note her CRP fell from 266 to 103 between 12/17/16 and 12/20/16. The patient was transitioned to oral prednisone. FINAL DIAGNOSES: 1. Ulcerative colitis. 2. Seizure disorder. 3. Obsessive compulsive disease. 4. Gastritis with bleeding. 5. Systemic inflammatory response syndrome. DISCHARGE MEDICATIONS: 1. Prednisone 10 mg, take 30 mg 3 times daily. 2. Guaifenesin 5 mg every 4 hours p.r.n. 3. Acetaminophen 650 mg every 4 hours p.r.n. 4. Folic acid 1 mg daily. 5. Ascorbic acid 500 mg daily. 6. Ibuprofen 400 mg every 6 hours p.r.n. 7. Hydrocortisone 0.2% topical daily as needed. 8. Loperamide 2 mg every 6 hours p.r.n. 9. Alprazolam 0.25 mg daily p.r.n. 10. Debrox 5 mL both ears daily p.r.n. 11. Bacitracin ointment one application t.i.d. p.r.n. 12. Fluvoxamine maleate 200 mg h.s. 13. Cetirizine 10 mg daily. 14. Carbamazepine ER 400 mg h.s. 15. Buspirone 45 mg b.i.d. 16. Fluvoxamine maleate 100 mg daily. [id number]/[facility] #: [id number]
== END 2016-12-20 13:33 | disposition home or self-care (01) | DRG 385 ==
LOC: ED 15:27 → MEDTELE 17:44
PROVIDERS: ADMIT Hospitalist; ATTEND Internal Medicine
PROC: 30233N1 Transfusion of Nonautologous Red Blood Cells into Peripheral Vein, Percutaneous Approach (ICD-10-PCS; principal; 2016-12-17)
PROC: 0DB68ZX Excision of Stomach, Via Natural or Artificial Opening Endoscopic, Diagnostic (ICD-10-PCS; 2016-12-18)
PROC: 0DBN8ZX Excision of Sigmoid Colon, Via Natural or Artificial Opening Endoscopic, Diagnostic (ICD-10-PCS; 2016-12-18)
DX: K51.90 Ulcerative colitis, unspecified, without complications (principal); K29.71 Gastritis, unspecified, with bleeding; R65.10 Systemic inflammatory response syndrome (SIRS) of non-infectious origin without acute organ dysfunction; F42.9 Obsessive-compulsive disorder, unspecified; F81.9 Developmental disorder of scholastic skills, unspecified; K63.5 Polyp of colon; G40.909 Epilepsy, unspecified, not intractable, without status epilepticus; F79 Unspecified intellectual disabilities; D50.9 Iron deficiency anemia, unspecified; E66.3 Overweight; Z68.26 Body mass index [BMI] 26.0-26.9, adult; Z79.52 Long term (current) use of systemic steroids
CPT/HCPCS: 36415; 71010; 74177; 80048; 80053; 81003; 81015; 82272; 82784; 83605; 83630; 84702; 85014; 85018; 85025; 85027; 85610; 85730; 86140; 86141; 86850; 86900; 86901; 86922; 87040; 87045; 87046; 87077; 87086; 87186; 87425; 87449; 87493; 87641; 87899; 88305; 94760; A9270-GY; J0744; J2250; J2920; J7512; P9040; Q9967

== ENCOUNTER 2023-12-26 16:57 | Inpatient (IN) ==
[2023-12-26 21:41] LABS: Hematocrit 44.4 % (35-45); Hemoglobin 14.1 g/dL (11.5-14.3); Mean Corpuscular Hgb Conc 31.6 g/dL (31-36); Mean Corpuscular Volume 91.5 fL (80-97); Mean Platelet Volume 8.9 fL (7.5-11.2); Platelet Count 369 10^3/uL (150-450); Red Blood Count 4.86 10^6/uL (3.63-4.92); Red Cell Distribution Width 14.2 % (12-17); White Blood Count 12.4 10^3/uL (3.8-11.8)
[2023-12-26 22:12] LABS: Potassium 4.4 mmol/L (3.5-5.0)
[2023-12-26 22:13] LABS: INR 1.16 (0.83-1.13)
[2023-12-26 22:15] LABS: Calcium 8.5 mg/dL (8.6-10.3); Creatinine, Serum 0.68 mg/dL (0.51-0.95); eGFR CKD-EPI 110.8 (>60)
[2023-12-26] MEDS: Iodixanol (CONTRAST) 320 MG/ML 100 ML SDV IV ONE (23:51)
[2023-12-26] MEDS: Lactated Ringers 1000 ml BAG 1,000 ML IV ONE (23:55)
[2023-12-27] MEDS: Calcium Carb (TUMS) 500 mg CHEW TAB PO ONE (01:03)
[2023-12-27] MEDS: Pantoprazole VIAL 40 MG VIAL IV ONE (01:06)
[2023-12-27] MEDS: Pantoprazole 80 mg in NS BAG 80 MG/250 ML BAG IV ONE (01:16)
[2023-12-27 02:17] LABS: PCO2 Arterial 23 mmHg (35-45); PO2 Arterial 102 mmHg (80-100)
[2023-12-27] MEDS: Lactated Ringers 1000 ml BAG 1,000 ML IV SCH (03:29)
[2023-12-27 03:37] LABS: C Reactive Protein 383.02 mg/L (<8.01)
[2023-12-27 04:03] LABS: Magnesium 1.9 mg/dL (1.9-2.7)
[2023-12-27] MEDS: Sodium Bicarb 8.4% Vial 50 ML 150 MEQ in D5W 1000 ml BAG 850 ML IV SCH (04:15)
[2023-12-27] MEDS ORDERED: INFLIXIMAB 100 MG IV SCH (04:15)
[2023-12-27] MEDS ORDERED: Dextrose 50% Syringe 50 ml 25 GM/50 ML SYRINGE IV PUSH PRN ×2 (04:26→12:41)
[2023-12-27 04:55] LABS: Calcium 7.9 mg/dL (8.6-10.3); Creatinine, Serum 0.62 mg/dL (0.51-0.95); eGFR CKD-EPI 113.2 (>60)
[2023-12-27] MEDS ORDERED: Enoxaparin 40 MG/0.4 ML SYR SUBCUT SCH (05:00)
[2023-12-27 09:28] LABS: Hemoglobin 12.6 g/dL (11.5-14.3); Mean Corpuscular Hemoglobin 28.9 pg (27-33); Mean Corpuscular Hgb Conc 32.3 g/dL (31-36); Mean Corpuscular Volume 89.3 fL (80-97); Mean Platelet Volume 9.2 fL (7.5-11.2); Platelet Count 365 10^3/uL (150-450); Red Blood Count 4.37 10^6/uL (3.63-4.92); Red Cell Distribution Width 13.3 % (12-17)
[2023-12-27] MEDS: NS 0.9% 1000 ml BAG 1,000 ML IV SCH (09:31)
[2023-12-27] MEDS: FLUVOXAMINE 100 MG PO SCH (09:31)
[2023-12-27] MEDS: Magnesium Sulfate IV 1GM/100ML 1 GM/100 ML BAG IV ONE (09:53)
[2023-12-27 10:09] LABS: Calcium 7.2 mg/dL (8.6-10.3); Creatinine, Serum 0.58 mg/dL (0.51-0.95); Magnesium 1.6 mg/dL (1.9-2.7); Potassium 3.2 mmol/L (3.5-5.0); eGFR CKD-EPI 115.1 (>60)
[2023-12-27 10:24] LABS: ABS Lymphocytes 0.8 10^3/uL (1.0-4.8); ABS Monocytes 0.4 10^3/uL (0.0-0.9); ABS Neutrophils 8.8 10^3/uL (1.5-7.6); Eosinophil % 0.2 %; Lymphocyte % 7.6 %
[2023-12-27 10:39] LABS: Urine Appearance Clear; Urine Bacteria Absent /HPF (Absent); Urine Bilirubin Negative (Negative); Urine Blood 3+ (Negative); Urine Color Light-Yellow; Urine Glucose 4+ (>=1000 mg/dL) (Negative); Urine Ketones 4+ (Negative); Urine Nitrite Negative (Negative); Urine Protein 1+ (>=30 mg/dL) (Negative); Urine Red Blood Cell 3+(>10/hpf) /HPF (0-Trace); Urine Squamous Epithelial Cell Present /HPF (Absent); Urine Urobilinogen Negative (Negative); Urine White Blood Cell 2+(11-20/hpf) /HPF (0-Trace); Urine pH 5.5 (5.0-8.0)
[2023-12-27] MEDS: methylPREDNISolone SOD SUCC 40 mg/ml 1 ml VIAL IV SCH ×2 (10:53→11:49)
[2023-12-27] MEDS: NS 0.9% 500 ml BAG 500 ML IV ONE (12:02)
[2023-12-27] MEDS: Potassium Chloride LIQUID 20 MEQ/15 ML LIQUID PO ONE (12:02)
[2023-12-27] MEDS: D5LR 1000 ml BAG 500 ML IV ONE (13:19)
[2023-12-27] MEDS: D5LR 1000 ml BAG 1,000 ML IV ONE (13:22)
[2023-12-27] MEDS: KCL 20 MEQ/100 ML IVPREMIX 20 MEQ/100 ML BAG IV ONE (13:23)
[2023-12-27] MEDS: Magnesium Sulfate 2 gm BAG 2 GM/50 ML BAG IVPB ONE (13:44)
[2023-12-27] MEDS: Insulin Infusion 100unit/100mL 100 UNIT/100 ML BAG IV SCH (14:50)
[2023-12-27] MEDS: D5LR 20 MEQ KCL 1000 ml BAG 1,000 ML IV SCH (14:51)
[2023-12-27 15:53] LABS: Magnesium 1.8 mg/dL (1.9-2.7)
[2023-12-27 15:57] LABS: Anion Gap 18 mmol/L (2-16); Blood Urea Nitrogen 5 mg/dL (6-24); CO2 Carbon Dioxide 16 mmol/L (22-32); Calcium 7.1 mg/dL (8.6-10.3); Chloride 96 mmol/L (101-111); Creatinine, Serum 0.55 mg/dL (0.51-0.95); Glucose 143 mg/dL (70-100); Sodium 130 mmol/L (135-145); eGFR CKD-EPI 116.6 (>60)
[2023-12-27] MEDS: Pantoprazole VIAL 40 MG VIAL IV SCH (16:56)
[2023-12-27 17:19] LABS: Albumin 3.1 g/dL (3.2-5.2); Albumin/Globulin Ratio 0.8 (1-3); Globulin 3.7 g/dL (2-4); Indirect Bilirubin 0.3 mg/dL (0.3-1.0); Total Bilirubin 0.3 mg/dL (0.2-1.0); Total Protein 6.8 g/dL (6.4-8.9)
[2023-12-27 17:38] LABS: Calcium 7.3 mg/dL (8.6-10.3); Creatinine, Serum 0.53 mg/dL (0.51-0.95); Magnesium 2.1 mg/dL (1.9-2.7); Phosphorus 1.3 mg/dL (2.5-5.0); Potassium 4.3 mmol/L (3.5-5.0); eGFR CKD-EPI 117.6 (>60)
[2023-12-27] MEDS: Sodium Phosphate IV 15 MMOL in NS 0.9% 250 ml 250 ML IV ONE (18:27)
[2023-12-27 21:57] LABS: Calcium 7.2 mg/dL (8.6-10.3); Creatinine, Serum 0.42 mg/dL (0.51-0.95); eGFR CKD-EPI 124.4 (>60)
[2023-12-27] MEDS: Insulin GLARGINE 100 un/ml 10 ml VIAL SUBCUT ONE (22:50)
[2023-12-27] MEDS: CMC:FluvoxaMINE 50 mg TAB (NF) PO SCH (22:53)
[2023-12-28 03:20] LABS: Calcium 7.2 mg/dL (8.6-10.3); Creatinine, Serum 0.47 mg/dL (0.51-0.95); Potassium 3.6 mmol/L (3.5-5.0); eGFR CKD-EPI 121.1 (>60)
[2023-12-28 06:16] LABS: Hematocrit 36.9 % (35-45); Hemoglobin 12.4 g/dL (11.5-14.3); Mean Corpuscular Hemoglobin 29.3 pg (27-33); Mean Corpuscular Hgb Conc 33.5 g/dL (31-36); Mean Corpuscular Volume 87.6 fL (80-97); Mean Platelet Volume 9.3 fL (7.5-11.2); Platelet Count 369 10^3/uL (150-450); Red Blood Count 4.21 10^6/uL (3.63-4.92); Red Cell Distribution Width 13.6 % (12-17)
[2023-12-28 06:19] LABS: RBC Morphology Normal (Normal)
[2023-12-28 07:45] LABS: Calcium 7.3 mg/dL (8.6-10.3); Creatinine, Serum 0.5 mg/dL (0.51-0.95); eGFR CKD-EPI 119.3 (>60)
[2023-12-28 07:46] LABS: Magnesium 2.1 mg/dL (1.9-2.7); Phosphorus 2.5 mg/dL (2.5-5.0); Potassium 3.7 mmol/L (3.5-5.0)
[2023-12-28] MEDS: Potassium EFFERVES 25 meq TAB PO ONE (08:13)
[2023-12-28] MEDS: CMC:FluvoxaMINE 50 mg TAB (NF) PO SCH (08:13)
[2023-12-28] MEDS ORDERED: Midazolam 10 mg/10 ml VIAL 1 mg/ml 10 ml VIAL (10 mg) ONE (14:58)
[2023-12-28] MEDS ORDERED: fentaNYL 100 mcg/2 ml 50 MCG/ML VIAL ONE (14:58)
[2023-12-29 06:47] LABS: Hematocrit 33.3 % (35-45); Hemoglobin 10.9 g/dL (11.5-14.3); Mean Corpuscular Hemoglobin 28.4 pg (27-33); Mean Corpuscular Hgb Conc 32.7 g/dL (31-36); Mean Corpuscular Volume 86.7 fL (80-97); Platelet Count 343 10^3/uL (150-450); Red Blood Count 3.84 10^6/uL (3.63-4.92); Red Cell Distribution Width 13.6 % (12-17); White Blood Count 8.7 10^3/uL (3.8-11.8)
[2023-12-29 07:03] LABS: Anion Gap 11 mmol/L (2-16); Blood Urea Nitrogen 6 mg/dL (6-24); CO2 Carbon Dioxide 29 mmol/L (22-32); Calcium 7.3 mg/dL (8.6-10.3); Chloride 96 mmol/L (101-111); Creatinine, Serum 0.41 mg/dL (0.51-0.95); Glucose 128 mg/dL (70-100); Potassium 3.8 mmol/L (3.5-5.0); Sodium 136 mmol/L (135-145); eGFR CKD-EPI 125.1 (>60)
[2023-12-29 08:22] LABS: ABS Lymphocytes 0.9 10^3/uL (1.0-4.8); ABS Monocytes 0.4 10^3/uL (0.0-0.9); ABS Neutrophils 7.3 10^3/uL (1.5-7.6); Eosinophil % 0.1 %; Lymphocyte % 10.4 %; RBC Morphology Normal (Normal)
[2023-12-29] MEDS: KCL 20 MEQ/100 ML IVPREMIX 20 MEQ/100 ML BAG IV ONE (09:10)
[2023-12-29 09:40] LABS: Folate 16.96 ng/mL (5.90-24.80)
[2023-12-29 09:42] LABS: Vitamin B12 > 1450 pg/mL (180-914)
[2023-12-29 11:52] LABS: C Reactive Protein 312.49 mg/L (<8.01)
[2023-12-29] MEDS: Lactated Ringers 1000 ml BAG 1,000 ML IV SCH (12:46)
[2023-12-29] MEDS: Acetaminophen IV 1 GM/100ML 1,000 MG/100 ML BAG IV PRN (17:36)
[2023-12-29] MEDS: Ondansetron 4 mg VIAL 2 MG/ML 2 ml VIAL IV PRN (17:37)
[2023-12-30 13:49] LABS: Hematocrit 35.4 % (35-45); Hemoglobin 11.5 g/dL (11.5-14.3); Mean Corpuscular Hemoglobin 28.5 pg (27-33); Mean Corpuscular Hgb Conc 32.5 g/dL (31-36); Mean Corpuscular Volume 87.8 fL (80-97); Mean Platelet Volume 8.9 fL (7.5-11.2); Platelet Count 415 10^3/uL (150-450); Red Blood Count 4.03 10^6/uL (3.63-4.92); White Blood Count 10.3 10^3/uL (3.8-11.8)
[2023-12-30 14:24] LABS: Albumin 2.6 g/dL (3.2-5.2); Albumin/Globulin Ratio 0.8 (1-3); C Reactive Protein 325.95 mg/L (<8.01); Calcium 7.8 mg/dL (8.6-10.3); Creatinine, Serum 0.45 mg/dL (0.51-0.95); Globulin 3.4 g/dL (2-4); Potassium 4.1 mmol/L (3.5-5.0); Total Bilirubin 0.3 mg/dL (0.2-1.0); eGFR CKD-EPI 122.3 (>60)
[2023-12-30] MEDS: Lactated Ringers 1000 ml BAG 1,000 ML IV SCH (21:58)
[2023-12-31 06:43] LABS: Hematocrit 30.1 % (35-45); Hemoglobin 10.2 g/dL (11.5-14.3); Mean Corpuscular Hemoglobin 29.6 pg (27-33); Mean Corpuscular Hgb Conc 33.9 g/dL (31-36); Mean Corpuscular Volume 87.3 fL (80-97); Mean Platelet Volume 8.6 fL (7.5-11.2); Platelet Count 330 10^3/uL (150-450); Red Blood Count 3.45 10^6/uL (3.63-4.92); Red Cell Distribution Width 13.7 % (12-17); White Blood Count 6.8 10^3/uL (3.8-11.8)
[2023-12-31 06:59] LABS: ALT 8 U/L (7-52); AST 9 U/L (13-39); Albumin 2.2 g/dL (3.2-5.2); Albumin/Globulin Ratio 0.8 (1-3); Alkaline Phosphatase 49 U/L (35-149); Anion Gap 9 mmol/L (2-16); Blood Urea Nitrogen 9 mg/dL (6-24); C Reactive Protein 254.65 mg/L (<8.01); CO2 Carbon Dioxide 27 mmol/L (22-32); Calcium 7.3 mg/dL (8.6-10.3); Chloride 96 mmol/L (101-111); Creatinine, Serum 0.33 mg/dL (0.51-0.95); Globulin 2.7 g/dL (2-4); Glucose 110 mg/dL (70-100); Potassium 3.8 mmol/L (3.5-5.0); Sodium 132 mmol/L (135-145); Total Bilirubin 0.2 mg/dL (0.2-1.0); Total Protein 4.9 g/dL (6.4-8.9); eGFR CKD-EPI 131.8 (>60)
[2023-12-31 11:13] LABS: HCG Pregnancy < 0.60 mIU/mL
[2023-12-31 16:53] LABS: Urine Appearance No Cx Clear (Clear); Urine Bilirubin No Culture Negative (Negative); Urine Blood No Culture 1+ (Negative); Urine Color No Culture Light-Yellow; Urine Glucose No Culture Negative (Negative); Urine Ketones No Culture 4+ (Negative); Urine Leukocytes No Culture Negative Leu/uL (Negative); Urine Nitrite No Culture Negative (Negative); Urine Protein No Culture 1+ (>=30 mg/dL) (Negative); Urine Specific Gravity No Cx 1.021 (1.002-1.030); Urine Urobilinogen No Cx Negative (Negative); Urine pH No Culture 7.5 (5.0-8.0)
[2023-12-31 16:58] LABS: Ur Squamous Epithelial No Cx Present /HPF (Absent); Urine Bacteria No Culture Absent /HPF (Absent); Urine Red Blood Cell No Cult 2+(6-10/hpf) /HPF (0-Trace); Urine White Blood Cell No Cult Trace(0-5/hpf) /HPF (0-Trace)
[2024-01-01 07:02] LABS: Hematocrit 29.1 % (35-45); Hemoglobin 9.7 g/dL (11.5-14.3); Mean Corpuscular Hemoglobin 29.1 pg (27-33); Mean Corpuscular Hgb Conc 33.2 g/dL (31-36); Mean Corpuscular Volume 87.8 fL (80-97); Mean Platelet Volume 8.5 fL (7.5-11.2); Platelet Count 348 10^3/uL (150-450); Red Blood Count 3.32 10^6/uL (3.63-4.92); Red Cell Distribution Width 13.5 % (12-17); White Blood Count 9.3 10^3/uL (3.8-11.8)
[2024-01-01 07:19] LABS: C Reactive Protein 245.68 mg/L (<8.01); Calcium 7.1 mg/dL (8.6-10.3); Creatinine, Serum 0.37 mg/dL (0.51-0.95); Magnesium 1.5 mg/dL (1.9-2.7); Potassium 3.5 mmol/L (3.5-5.0); eGFR CKD-EPI 128.2 (>60)
[2024-01-01 08:01] LABS: ABS Lymphocytes 1.2 10^3/uL (1.0-4.8); ABS Monocytes 0.3 10^3/uL (0.0-0.9); ABS Neutrophils 7.7 10^3/uL (1.5-7.6); ABS Nucleated RBC 0.02 10^3/ul; Eosinophil % 0.2 %; Lymphocyte % 13.1 %; Nucleated Red Blood Cells % 0.2 %/100WBC (0.0-0.8); RBC Morphology Normal (Normal)
[2024-01-01] MEDS: Magnesium Sulfate IV 1GM/100ML 1 GM/100 ML BAG IV ONE (11:17)
[2024-01-01] MEDS: Potassium EFFERVES 25 meq TAB PO ONE (13:14)
[2024-01-01] MEDS: guaiFENesin 100 mg/5 ml LIQ unit dose cup PO PRN (20:49)
[2024-01-01] MEDS ORDERED: MESALAMINE 1000 MG PR SCH (21:00)
[2024-01-01] MEDS: Mesalamine RECTAL SUSP 4 GM/60 ML RECTAL.SUS PR SCH (22:45)
[2024-01-01 22:55] LABS: Hematocrit 36.9 % (35-45); Hemoglobin 12.2 g/dL (11.5-14.3)
[2024-01-02 06:39] LABS: Hematocrit 34.1 % (35-45); Hemoglobin 11.3 g/dL (11.5-14.3); Mean Corpuscular Hemoglobin 28.7 pg (27-33); Mean Corpuscular Hgb Conc 33.2 g/dL (31-36); Mean Corpuscular Volume 86.3 fL (80-97); Mean Platelet Volume 8.1 fL (7.5-11.2); Platelet Count 369 10^3/uL (150-450); Red Blood Count 3.96 10^6/uL (3.63-4.92); Red Cell Distribution Width 13.8 % (12-17); White Blood Count 9.7 10^3/uL (3.8-11.8)
[2024-01-02 07:31] LABS: ABS Monocytes 0.6 10^3/uL (0.0-0.9); ABS Neutrophils 8.1 10^3/uL (1.5-7.6); ABS Nucleated RBC 0.02 10^3/ul; Eosinophil % 0.1 %; Lymphocyte % 10.2 %; Nucleated Red Blood Cells % 0.2 %/100WBC (0.0-0.8); RBC Morphology Normal (Normal)
[2024-01-02 07:33] LABS: Albumin 2.2 g/dL (3.2-5.2); Albumin/Globulin Ratio 0.7 (1-3); C Reactive Protein 234.5 mg/L (<8.01); Calcium 7.3 mg/dL (8.6-10.3); Creatinine, Serum 0.33 mg/dL (0.51-0.95); Globulin 3.1 g/dL (2-4); Magnesium 1.9 mg/dL (1.9-2.7); Potassium 4.2 mmol/L (3.5-5.0); Total Bilirubin 0.3 mg/dL (0.2-1.0); Total Protein 5.3 g/dL (6.4-8.9); eGFR CKD-EPI 131.8 (>60)
[2024-01-02 10:23] VITALS: BP 141/90
[2024-01-02 12:32] LABS: Rapid COVID-19 Molecular Undetected (Undetected)
== END 2024-01-02 16:15 | disposition short-term general hospital (02) | DRG 385 ==
LOC: ED 16:57 → EDHOLD 16:57 → SUATTDRO 12-27 01:16 → ICU 12-27 14:08 → MED 12-28 09:11
PROVIDERS: ADMIT Internal Medicine; ATTEND Internal Medicine